=== PATIENT | female | born 1980 | race Caucasian/White ===

== ENCOUNTER 2025-04-01 14:19 | Observation (INO) ==
[2025-04-01] MEDS: SODIUM CHLORIDE 0.9% 1,000 ML IV STA (14:51)
--- NOTE | 2025-04-01 14:52 | Emergency Department Note ---
Impression & Plan UTI (urinary tract infection), Pelvic pain, Failure of outpatient treatment, Immunocompromised ED Provider Note NAME: JAYANT PEREZ AGE: 44 SEX: F : 1980 ARRIVES VIA: Walk-In INFORMANT: [Patient] ED PROVIDER(S): [Isra Granados MD] CHIEF COMPLAINT: Urinary symptoms HISTORY OF PRESENT ILLNESS: The patient is a 44-year-old female who presents with urinary symptoms that have been present for about a week. She has had some burning and urgency and some discomfort in the area of the pelvis. The patient saw her doctor's office and, had a urine culture run. She then came to the ED 5 days ago and was diagnosed with a UTI and placed on Keflex. She began to feel a bit better using the Keflex but was then called and told to switch to Macrobid based on her urine culture. She states that once she switched to Macrobid, she actually began to notice the symptoms worsening. She has not had fever or vomiting. No flank pain. As per the pharmacy notes, the patient grew Staph epidermidis which is somewhat resistant. The organism was resistant to oxacillin but sensitive to tetracycline, Bactrim, vancomycin, daptomycin, linezolid and Macrobid. Of note, the urine culture result from the [facility] from the primary doctor's office also grew staph resistant to oxacillin but sensitive to Macrobid, tetracycline, Bactrim and vancomycin. PMHx/PSHx/Social Hx: See Below PHYSICAL EXAM: GENERAL: Patient is in no acute distress. HEENT: No acute trauma, normocephalic atraumatic, mucous membranes moist, no nasal congestion. NECK: No stridor, no adenopathy, no meningismus, trachea is midline. LUNGS: Clear to auscultation bilaterally, no wheeze, no rhonchi, breath sounds equal. HEART: Without murmurs gallops or rubs, regular rate and rhythm. ABDOMEN: Soft, tender in the area of the low abdomen/pelvis. EXTREMITIES: No cyanosis, full range of motion of all the joints without pain or difficulty. Mild bilateral pedal edema. NEUROLOGIC: Oriented x 3, no acute motor or sensory deficits, no focal weakness. SKIN: No jaundice, no diaphoresis. Back: No flank discomfort to percussion. DIFFERENTIAL DIAGNOSIS: Pyelonephritis, resistant UTI, failed outpatient management, renal injury, among others. EMERGENCY DEPARTMENT PROCEDURES: MEDICAL DECISION MAKING: There is no leukocytosis or concerning anemia. There is a normal platelet count. No bandemia. No renal failure or significant electrolyte abnormality. No concerning liver enzyme elevation. No evidence for pancreatitis. testing is negative. Urinalysis is suggestive of infection. Abdominal and pelvis CT did not show any acute pathology, no urinary obstruction. On exam, the patient was not toxic or febrile. The patient has been dealing with some urinary discomfort and some lower pelvic pain. She has 2 urine cultures that have grown over 100,000 staph, the staph is resistant to oxacillin. She has multiple medication allergies and, right now, is not able to take any oral medication to combat this infection. Patient was given IV daptomycin, she received a liter of IV saline. Given the circumstances and findings, given her allergies and failed outpatient treatment, given her immunocompromise, admission for IV antibiotic therapy is warranted. I spoke with the patient at length, I spoke with case management, the on-call hospitalist was consulted. Prior/Outside records/notes reviewed: Previous ED visit note describing her presentation, findings and outpatient plan. Imaging/x-ray results per my interpretation: Chronic Medical/Social conditions affecting care: She is somewhat immunocompromise from using Humira. Care/Management discussed with: Case management and the on-call hospitalist. Level of care consideration(s): After review of the information above and other included data: --I believe the patient requires escalation of care to admission DISPOSITION: Admission Past Med/Surg History Problem List Immunocompromised (Acute) Failure of outpatient treatment (Acute) Pelvic pain (Acute) UTI (urinary tract infection) (Acute) UTI (urinary tract infection) (Acute) Abdominal pain (Acute) Acute diarrhea (Acute) Breast pain (Acute) Medical History Colitis Social History Smoking Status: Never smoker Preferred Language: Arabic Feels Safe at Home: Yes Allergies Allergies Allergy/AdvReac Type Severity Reaction Status Date / Time Sulfa (Sulfonamide Allergy Unknown "INFLAMED Unverified 10/08/14 03:43 Antibiotics) STOMACH" iodine Allergy Hives Unverified 04/01/25 17:29 Corticosteroids AdvReac Unknown "UPSET Unverified 10/08/14 03:43 (Glucocorticoids) STOMACH" amoxicillin [From Augmentin] AdvReac Abdominal Unverified 04/01/25 17:29 Pain clavulanic acid AdvReac Abdominal Unverified 04/01/25 17:29 [From Augmentin] Pain doxycycline AdvReac Abdominal Unverified 04/01/25 17:29 Pain metronidazole [From Flagyl] AdvReac Vomiting Unverified 04/01/25 17:29 sulfamethoxazole AdvReac Abdominal Unverified 04/01/25 17:29 [From Bactrim] Pain trimethoprim [From Bactrim] AdvReac Abdominal Unverified 04/01/25 17:29 Pain Home Meds Home Medications Medication Instructions Recorded Confirmed adalimumab 40 mg/0.4 mL 40 mg subcut DIRECTED 04/01/25 04/01/25 subcutaneous pen kit (Humira(CF) Pen) albuterol sulfate 90 mcg/actuation 2 puff inhalation Q6H PRN asthma 04/01/25 04/01/25 aerosol inhaler buspirone 15 mg tablet 15 mg PO HS 04/01/25 04/01/25 buspirone 5 mg tablet 5 mg PO DAILY 04/01/25 04/01/25 empagliflozin 25 mg tablet 25 mg PO DAILY 04/01/25 04/01/25 (Jardiance) fluticasone propionate 110 2 puff inhalation BID PRN asthma 04/01/25 04/01/25 mcg/actuation HFA aerosol inhaler levothyroxine 50 mcg tablet 50 mcg PO DAILY 04/01/25 04/01/25 metformin 500 mg tablet,extended 1,000 mg PO BID 04/01/25 04/01/25 release 24 hr methylphenidate HCl 27 mg 27 mg PO DAILY 04/01/25 04/01/25 tablet,extended release 24 hr nitrofurantoin 100 mg PO BID 04/01/25 04/01/25 monohydrate/macrocrystals 100 mg capsule omeprazole 20 mg capsule,delayed 20 mg PO DAILY 04/01/25 04/01/25 release semaglutide 0.25 mg or 0.5 mg (2 0.25 mg subcut WK 04/01/25 04/01/25 mg/3 mL) subcutaneous pen injector (Ozempic) vitamin D3 1,250 mcg (50,000 2 cap PO DAILY 04/01/25 04/01/25 unit)-vitamin K2 200 mcg capsule Results & Data (ED) Vital Signs Vital Signs - 24 hr 04/01/25 14:29 04/01/25 17:45 Temperature 36.3 C L Temperature Source Skin Pulse Rate 92 H Pulse Rate [Right Finger] 94 H Respiratory Rate 16 20 Respiratory Effort / Characteristics Non-Labored Spontaneous Respiratory Depth Normal Respiratory Pattern Regular Blood Pressure 176/108 H Blood Pressure [Left Arm] 142/100 H Blood Pressure Mean 130 Blood Pressure Mean [Left Arm] 114 Pulse Oximetry 100 99 Oxygen Delivery Method Room Air Sepsis Recent Fever Within 48 Hours No Sepsis New/Unexplained Change in Mental Status N/A Sepsis Action Taken by Nursing No Action Required Home Medications Current Medication List: was personally reviewed by me Laboratory Data Attestation: I reviewed the patient's lab results. 04/01/25 14:50 04/01/25 14:50 Lab Results 04/01/25 04/01/25 Range/Units 14:30 14:50 WBC 8.43 (4.8-10.8) K/ul RBC 4.72 (4.20-5.40) M/uL Hgb 13.0 (12.0-16.0) g/dL Hct 39.7 (37.0-47.0) % MCV 84.1 (80.0-100.0) fL MCH 27.5 (25.0-34.0) pg MCHC 32.7 (32.0-36.0) g/dL RDW Std Deviation 43.0 (36.4-46.3) fL RDW Coeff of Jean [place] 13.9 (11.5-14.5) % Plt Count 210 (130-400) K/uL MPV 10.8 (9.4-12.4) fL Immature Gran % (Auto) 0.2 % Neut % (Auto) 61.4 % Lymph % (Auto) 29.1 % [place] % (Auto) 7.2 % Eos % (Auto) 1.4 % Baso % (Auto) 0.7 % Neut # (Auto) 5.17 (1.40-6.50) K/uL Lymph # (Auto) 2.45 (1.20-3.40) K/uL [place] # (Auto) 0.61 H (0.11-0.59) K/uL Eos # (Auto) 0.12 (0.00-0.50) K/uL Baso # (Auto) 0.06 (0.00-0.20) K/uL Immature Gran # (Auto) 0.02 (0.01-0.20) K/uL Sodium 137 (136-145) mmol/L Potassium 3.4 L (3.5-5.1) mmol/L Chloride 102 (98-107) mmol/L Carbon Dioxide 26 (21-32) mmol/L Anion Gap 9 (3-11) BUN 11 (6-23) mg/dl Creatinine 0.65 (0.6-1.2) mg/dl Est Cr Clr Drug Dosing 147.3 ml/min eGFR 110.58 BUN/Creatinine Ratio 16.9 (10-20) Glucose 221 H (70-99(Fasting)) mg/dl Calcium 9.2 (8.6-10.3) mg/dl Total Bilirubin 0.4 (0.2-1.0) mg/dl AST 13 (13-39) U/L ALT 13 (7-52) U/L Alkaline Phosphatase 65 (34-104) U/L Total Protein 7.9 (6.0-8.3) gm/dl Albumin 4.4 (3.4-5.0) gm/dl Globulin 3.5 (2.5-4.0) gm/dl Albumin/Globulin Ratio 1.3 (0.9-2) Lipase 26 (11-82) U/L HCG, Qual Negative (Negative) Urine Color Yellow Urine Appearance Clear (Clear) Urine pH 5.5 (4.5-7.5) Ur Specific [place] 1.007 (1.000-1.030) Urine Protein Negative (Negative) Urine Glucose (UA) 1+ H (Negative) Urine Ketones Negative (Negative) Urine Blood Negative (Negative) Urine Nitrite Negative (Negative) Urine Bilirubin Negative (Negative) Urine Urobilinogen Negative (Negative) Ur Leukocyte Esterase 2+ H (Negative) Urine WBC (Auto) >50 H (0-5) /hpf Urine RBC (Auto) 0-2 (0-2) /hpf U Hyaline Cast (Auto) 0-2 (0-2) /lpf U Epithel Cells (Auto) 0-2 (0-2) /hpf Urine Bacteria (Auto) None Seen (None Seen) Urine Yeast Present A (None Prsent) Urine Comment Administered Medications Discontinued Medications Sodium Chloride (Nss) 1,000 mls @ 999 mls/hr IV .Q1H1M STA Stop: 04/01/25 15:36 Last Admin: 04/01/25 14:51 Dose: 999 mls/hr Documented By: NANETTE Ioversol (Optiray 320 100ml) 93 ml IV ONCE ONE Stop: 04/01/25 15:45 Last Admin: 04/01/25 15:44 Dose: 93 ml Documented By: EDK Imaging Data Radiologist's Impression: Abdomen/Pelvis CT 04/01/25 14:36 EXAMINATION: CT of the abdomen and pelvis performed after the administration of IV contrast TECHNIQUE: Helical CT images from the lung bases through the symphysis pubis were obtained with contrast. Coronal and sagittal reformatted images were generated at a workstation for further assessment. Dose reduction techniques were achieved by using automatic exposure control and/or adjustment of mA and/or kV according to patient size and/or use of iterative reconstruction technique. COMPARISON: None HISTORY: Abdominal pain FINDINGS: Lower chest: No consolidation. No pleural effusion or pneumothorax. Liver: No suspicious liver lesions. Portal veins appear patent. Gallbladder: No gallstones. No evidence of acute cholecystitis. Spleen: Normal size. Pancreas: No suspicious pancreatic lesions. The pancreatic duct is not dilated. Adrenal glands: No adrenal nodules. Kidneys: No hydronephrosis or obstructing renal stones. There is scattered pelvic phleboliths. Bladder / Pelvic organs: Unremarkable. Bowel: No bowel obstruction. No abnormal bowel wall thickening. The appendix is unremarkable. Lymph nodes: No retroperitoneal, mesenteric, or pelvic lymphadenopathy. Peritoneum / Retroperitoneum: No free fluid or air within the abdomen. Vessels: No infrarenal aortic aneurysm. Bones and soft tissues: No suspicious lesion in the bones. IMPRESSION: No acute finding in the abdomen or pelvis Electronically signed by Ebenezer Florentino 04-01-2025 5:27 PM Discharge Plan Visit Data Chief Complaint: Urinary Symptoms Stated Complaint: URINARY SYMPTOMS ED Provider: Isra Granados Discharge Problem: UTI (urinary tract infection), Pelvic pain, Failure of outpatient treatment, Immunocompromised Patient Disposition: Admitted As Inpatient Condition: Fair Forms Stand Alone Forms: My [facility] Prescriptions Prescriptions: No Action levothyroxine 50 mcg tablet 50 mcg PO DAILY omeprazole 20 mg capsule,delayed release(DR/EC) 20 mg PO DAILY albuterol sulfate 90 mcg/actuation HFA aerosol inhaler 2 puff INHALATION Q6H PRN (Reason: asthma) metformin 500 mg tablet extended release 24 hr 1,000 mg PO BID fluticasone propionate [Flovent] 110 mcg/actuation Hfa Aerosol Inhaler 2 puff INHALATION BID PRN (Reason: asthma) buspirone 15 mg tablet 15 mg PO HS Rx Instructions: 15 mg at bedtime and 5 mg in am methylphenidate HCl 27 mg tablet extended release 24hr 27 mg PO DAILY nitrofurantoin monohyd/m-cryst 100 mg capsule 100 mg PO BID Jardiance 25 mg tablet 25 mg PO DAILY Patient Comments: Medication on hold per pt. Humira(CF) Pen 40 mg/0.4 mL pen injector kit 40 mg SUBCUT DIRECTED Rx Instructions: Inject every 2 weeks vitamin D3-vitamin K2 1,250-200 mcg Capsule 2 cap PO DAILY Ozempic 0.25 mg or 0.5 mg (2 mg/3 mL) pen injector 0.25 mg SUBCUT WK buspirone 5 mg Tablet 5 mg PO DAILY Referrals Referrals: Roque Steven MD [Primary Care Provider] - Discharge Problem: UTI (urinary tract infection) Qualifiers: Urinary tract infection type: acute cystitis Hematuria presence: without hematuria Qualified Code(s): N30.00 - Acute cystitis without hematuria Pelvic pain Qualifiers: Laterality: unspecified laterality Qualified Code(s): R10.20 - Pelvic and perineal pain unspecified side
[2025-04-01 15:07] LABS: Hematocrit (blood only) 39.7 % (37.0-47.0); Hemoglobin 13.0 g/dL (12.0-16.0); Immature Granulocytes # (auto) 0.02 K/uL (0.01-0.20); Immature Granulocytes % (auto) 0.2 %; Mean Corpuscular Hemoglobin 27.5 pg (25.0-34.0); Mean Corpuscular Volume 84.1 fL (80.0-100.0); Platelet Count 210 K/uL (130-400); RDW Standard Deviation 43.0 fL (36.4-46.3); Red Blood Count 4.72 M/uL (4.20-5.40); White Blood Count 8.43 K/ul (4.8-10.8)
[2025-04-01 15:26] LABS: Alanine Aminotransferase 13.0 U/L (7-52); Albumin Globulin Ratio 1.3 (0.9-2); Albumin Level 4.4 gm/dl (3.4-5.0); Alkaline Phosphatase 65.0 U/L (34-104); Anion Gap 9.0 (3-11); Bilirubin,Total 0.4 mg/dl (0.2-1.0); Blood Urea Nitrogen 11.0 mg/dl (6-23); Calcium 9.2 mg/dl (8.6-10.3); Carbon Dioxide 26.0 mmol/L (21-32); Chloride 102.0 mmol/L (98-107); Creatinine Clr Calc Pharmacy 147.3 ml/min; Globulin 3.5 gm/dl (2.5-4.0); Glucose 221.0 mg/dl (70-99(Fasting)); Lipase 26.0 U/L (11-82); Potassium 3.4 mmol/L (3.5-5.1); Sodium 137.0 mmol/L (136-145); Total Protein 7.9 gm/dl (6.0-8.3)
[2025-04-01 15:27] LABS: Appearance Urine Clear (Clear); Bacteria Urine Automated None Seen (None Seen); Cast Urine Automated 0-2 /lpf (0-2); Epithelial Cell Urine Auto 0-2 /hpf (0-2); Glucose Urine UA 1+ (Negative); RBC Urine Automated 0-2 /hpf (0-2); WBC Urine Automated >50 /hpf (0-5)
[2025-04-01 15:30] LABS: Pregnancy Test, Serum Negative (Negative)
[2025-04-01] MEDS: OPTIRAY 320 100ml IV ONE (15:44)
--- NOTE | 2025-04-01 17:28 | CT Scan Report ---
EXAMINATION: CT of the abdomen and pelvis performed after the administration of IV contrast TECHNIQUE: Helical CT images from the lung bases through the symphysis pubis were obtained with contrast. Coronal and sagittal reformatted images were generated at a workstation for further assessment. Dose reduction techniques were achieved by using automatic exposure control and/or adjustment of mA and/or kV according to patient size and/or use of iterative reconstruction technique. COMPARISON: None HISTORY: Abdominal pain FINDINGS: Lower chest: No consolidation. No pleural effusion or pneumothorax. Liver: No suspicious liver lesions. Portal veins appear patent. Gallbladder: No gallstones. No evidence of acute cholecystitis. Spleen: Normal size. Pancreas: No suspicious pancreatic lesions. The pancreatic duct is not dilated. Adrenal glands: No adrenal nodules. Kidneys: No hydronephrosis or obstructing renal stones. There is scattered pelvic phleboliths. Bladder / Pelvic organs: Unremarkable. Bowel: No bowel obstruction. No abnormal bowel wall thickening. The appendix is unremarkable. Lymph nodes: No retroperitoneal, mesenteric, or pelvic lymphadenopathy. Peritoneum / Retroperitoneum: No free fluid or air within the abdomen. Vessels: No infrarenal aortic aneurysm. Bones and soft tissues: No suspicious lesion in the bones. IMPRESSION: No acute finding in the abdomen or pelvis Electronically signed by Ebenezer Florentino 04-01-2025 5:27 PM
--- NOTE | 2025-04-01 17:43 | History & Physical Report ---
Date of Service April 01, 2025 Assessment & Plan (1) UTI (urinary tract infection): (2) Immunocompromised: (3) Failure of outpatient treatment: Plan: Urinary tract infection Failed outpatient treatment (Keflex, Macrobid) Immunocompromise state --CT ABD:No acute finding in the abdomen or pelvis -- Prior urine culture grew Staph epidermidis resistant to oxacillin Given intolerance to multiple oral antibiotics due to Crohn's disease, will start on IV daptomycin Gentle IV fluids Blood, urine culture pending Pyridium as needed Hypokalemia Replete and monitor Elevated blood pressure No known history of hypertension Likely situational Monitor for now Crohn's disease Last colonoscopy in October In remission Hold Humira Follows with gastroenterology as outpatient GERD Continue PPI Diabetes mellitus type 2 Hold p.o. meds Consider to discontinue Jardiance on discharge Insulin sliding scale while hospitalized Monitor blood glucose levels Other chronic condition Asthma ADHD Mood disorder Continue home medications DVT Px: Lovenox SQ CODE STATUS Full code Disposition Admit to [facility] I personally interviewed and examined the patient at bedside. Personally reviewed blood work, imaging studies, old records and discussed with the ED physician. I spent a total [id number] coordinating, documenting, and providing care for this patient. History of Present Illness Chief Complaint: Urinary symptoms Primary Care Provider: Roque Steven MD Patient is a 44-year-old female with history of Crohn's disease on Humira, GERD, diabetes mellitus type 2, asthma, ADHD, mood disorder and other medical problems presents with history of worsening dysuria, increased urinary urgency/frequency, lower abdominal pain for about 1 week duration. Patient noted to have cloudy urine with metallic taste in her mouth initially and later developed lower a bdominal pressure associated with dysuria and increased urinary frequency. Patient was evaluated in ED and was suspected to have UTI and was prescribed Keflex. She developed transient diarrhea while on Keflex. Patient denied any blood in stools. Her symptoms temporarily improved and based on her urine cultures patient was called to discontinue Keflex and was started on Macrobid. After starting Macrobid, patient's symptoms continue to worsen and had recurrence of dysuria, increased urinary frequency and urgency associated with worsening lower abdominal pain and so presented to ED for further evaluation. Denies any history of chest pain, dyspnea, dizziness, pedal edema, fever, chills, nausea, vomiting, blood in stools, hematuria. Allergies Allergy/AdvReac Type Severity Reaction Status Date / Time Sulfa (Sulfonamide Allergy Unknown "INFLAMED Unverified 10/08/14 03:43 Antibiotics) STOMACH" iodine Allergy Hives Unverified 04/01/25 17:29 Corticosteroids AdvReac Unknown "UPSET Unverified 10/08/14 03:43 (Glucocorticoids) STOMACH" amoxicillin [From Augmentin] AdvReac Abdominal Unverified 04/01/25 17:29 Pain clavulanic acid AdvReac Abdominal Unverified 04/01/25 17:29 [From Augmentin] Pain doxycycline AdvReac Abdominal Unverified 04/01/25 17:29 Pain metronidazole [From Flagyl] AdvReac Vomiting Unverified 04/01/25 17:29 sulfamethoxazole AdvReac Abdominal Unverified 04/01/25 17:29 [From Bactrim] Pain trimethoprim [From Bactrim] AdvReac Abdominal Unverified 04/01/25 17:29 Pain Home Medications Medication Instructions Recorded Confirmed Type adalimumab 40 mg/0.4 mL 40 mg subcut DIRECTED 04/01/25 04/01/25 History subcutaneous pen kit (Humira(CF) Pen) albuterol sulfate 90 mcg/actuation 2 puff inhalation Q6H PRN asthma 04/01/25 04/01/25 History aerosol inhaler buspirone 15 mg tablet 15 mg PO HS 04/01/25 04/01/25 History buspirone 5 mg tablet 5 mg PO DAILY 04/01/25 04/01/25 History empagliflozin 25 mg tablet 25 mg PO DAILY 04/01/25 04/01/25 History (Jardiance) fluticasone propionate 110 2 puff inhalation BID PRN asthma 04/01/25 04/01/25 History mcg/actuation HFA aerosol inhaler levothyroxine 50 mcg tablet 50 mcg PO DAILY 04/01/25 04/01/25 History metformin 500 mg tablet,extended 1,000 mg PO BID 04/01/25 04/01/25 History release 24 hr methylphenidate HCl 27 mg 27 mg PO DAILY 04/01/25 04/01/25 History tablet,extended release 24 hr nitrofurantoin 100 mg PO BID 04/01/25 04/01/25 History monohydrate/macrocrystals 100 mg capsule omeprazole 20 mg capsule,delayed 20 mg PO DAILY 04/01/25 04/01/25 History release semaglutide 0.25 mg or 0.5 mg (2 0.25 mg subcut WK 04/01/25 04/01/25 History mg/3 mL) subcutaneous pen injector (Ozempic) vitamin D3 1,250 mcg (50,000 2 cap PO DAILY 04/01/25 04/01/25 History unit)-vitamin K2 200 mcg capsule Past Med/Surg History Problem List Immunocompromised (Acute) Failure of outpatient treatment (Acute) Pelvic pain (Acute) UTI (urinary tract infection) (Acute) UTI (urinary tract infection) (Acute) Abdominal pain (Acute) Acute diarrhea (Acute) Breast pain (Acute) Medical History Colitis Social History Smoking Status: Never smoker Preferred Language: Irish Feels Safe at Home: Yes Review of Systems Review of Systems: All systems reviewed & are unremarkable except as noted in Subjective Physical Exam Physical Exam: Physical Exam: Vitals signs as noted above General Appearance: Obese, no apparent distress Head: normocephalic, Atraumatic Eyes: normal inspection, EOMI Neck: supple, Trachea midline Respiratory/Chest: Normal breath sounds, CTA, No accessory muscle use Cardiovascular: S1, S2, No murmur Abdomen/GI:Soft, generalized abdominal tenderness predominantly lower quadrant, Bowel sounds present, no guarding or rigidity Extremities/Musculoskeletal:normal inspection, no edema Neurologic/Psych:AAOX3, grossly no focal neurological deficits Skin: normal color, warm Results & Data Results & Data Vital Signs (Past 12 Hours) Vital Signs Temp Pulse Resp BP Pulse Ox O2 Del Method 04/01/25 14:29 36.3 C L 92 H 16 176/108 H 100 Room Air Laboratory Results Short CBC 04/01/25 Range/Units 14:50 WBC 8.43 (4.8-10.8) K/ul Hgb 13.0 (12.0-16.0) g/dL Hct 39.7 (37.0-47.0) % Plt Count 210 (130-400) K/uL BMP 04/01/25 14:50 Sodium 137 Potassium 3.4 L Chloride 102 Carbon Dioxide 26 BUN 11 Creatinine 0.65 Glucose 221 H Calcium 9.2 Liver Function 04/01/25 Range/Units 14:50 Total Bilirubin 0.4 (0.2-1.0) mg/dl AST 13 (13-39) U/L ALT 13 (7-52) U/L Alkaline Phosphatase 65 (34-104) U/L Albumin 4.4 (3.4-5.0) gm/dl Urine 04/01/25 Range/Units 14:30 Urine Color Yellow Urine Appearance Clear (Clear) Urine pH 5.5 (4.5-7.5) Ur Specific [place] 1.007 (1.000-1.030) Urine Protein Negative (Negative) Urine Glucose (UA) 1+ H (Negative) Diagnostic Findings --CT ABD:No acute finding in the abdomen or pelvis (1) UTI (urinary tract infection) Hematuria presence: without hematuria Urinary tract infection type: acute cystitis Qualified Code(s): N30.00 - Acute cystitis without hematuria
[2025-04-01] MEDS: DAPTOmycin 775 MG in SYRINGE 0 ML IV ONE (18:39)
[2025-04-01] MEDS ORDERED: ONDANSETRON INJ 2 MG/ML 2 ML VIAL IV PRN (20:40)
[2025-04-01] MEDS ORDERED: PHENAZOPYRIDINE HCL 100 MG TAB PO PRN (20:40)
[2025-04-01] MEDS ORDERED: POLYETHYLENE (MIRALAX) 17 GM PACK PO PRN (20:40)
[2025-04-01] MEDS ORDERED: CARBOHYDRATES FOR HYPOGLYCEMIA PO PRN (20:40)
[2025-04-01] MEDS ORDERED: GLUCAGON FOR INJ 1 MG VIAL SQ PRN (20:40)
[2025-04-01] MEDS ORDERED: ALBUTEROL HFA 8 GM INHALER INH PRN (20:40)
[2025-04-01] MEDS ORDERED: GLUCOSE 10 TAB/TUBE PO PRN (20:40)
[2025-04-01] MEDS ORDERED: GLUCOSE 40% GEL 15 GM TUBE PO PRN (20:40)
[2025-04-01] MEDS ORDERED: DEXTROSE 50% 50 ML SYRINGE IV PRN (20:40)
[2025-04-01] MEDS: LANTUS PER UNIT CHARGE SQ SCH (21:41)
[2025-04-01] MEDS: INSULIN ASPART PER UNIT CHARGE SC SCH (21:41)
[2025-04-01] MEDS: POTASSIUM CHLORIDE 10 MEQ TABCR PO ONE (21:42)
[2025-04-01] MEDS: busPIRone 15 MG TAB PO SCH (21:42)
[2025-04-01] MEDS: LACTATED RINGER'S 1,000 ML IV ONE (21:42)
[2025-04-01] MEDS: ACETAMINOPHEN 325 MG TAB PO PRN (21:50)
[2025-04-02] MEDS: LEVOTHYROXINE SODIUM 50 MCG TABLET PO SCH (05:43)
[2025-04-02 06:28] LABS: Hematocrit (blood only) 35.5 % (37.0-47.0); Hemoglobin 12.0 g/dL (12.0-16.0); Mean Corpuscular Hemoglobin 28.2 pg (25.0-34.0); Mean Corpuscular Volume 83.3 fL (80.0-100.0); Platelet Count 179 K/uL (130-400); RDW Standard Deviation 42.2 fL (36.4-46.3); Red Blood Count 4.26 M/uL (4.20-5.40); White Blood Count 7.70 K/ul (4.8-10.8)
[2025-04-02 06:41] LABS: Anion Gap 6.0 (3-11); Blood Urea Nitrogen 10.0 mg/dl (6-23); Calcium 8.7 mg/dl (8.6-10.3); Carbon Dioxide 25.0 mmol/L (21-32); Chloride 107.0 mmol/L (98-107); Creatinine Clr Calc Pharmacy 175.4 ml/min; Glucose 160.0 mg/dl (70-99(Fasting)); Magnesium 1.6 mg/dl (1.7-2.4); Potassium 3.9 mmol/L (3.5-5.1); Sodium 138.0 mmol/L (136-145)
[2025-04-02] MEDS: INSULIN ASPART PER UNIT CHARGE SC SCH (07:56)
[2025-04-02] MEDS: busPIRone 5 MG TAB PO SCH (09:27)
[2025-04-02] MEDS: ENOXAPARIN INJ 40 MG/0.4 ML SYR SQ SCH (09:27)
[2025-04-02 15:18] VITALS: RESP 18
--- NOTE | 2025-04-02 16:03 | Hospitalist Progress Note ---
Date of Service April 02, 2025 Assessment & Plan (1) UTI (urinary tract infection): (2) Immunocompromised: (3) Failure of outpatient treatment: Plan: Urinary tract infection Failed outpatient treatment (Keflex, Macrobid) Immunocompromise state --CT ABD:No acute finding in the abdomen or pelvis -- Prior urine culture grew Staph epidermidis resistant to oxacillin Given intolerance to multiple oral antibiotics due to Crohn's disease, will start on IV daptomycin Gentle IV fluids Blood, urine culture pending Pyridium as needed 04/02 Clinically improving Blood culture: Pending Continue daptomycin day #2 Will need total of 7-day course of IV daptomycin in light of immunocompromise state, on Humira, failure of oral antibiotics Plan to receive IV daptomycin daily at the medical treatment unit, discussed with patient and she is agreeable with this plan, discussed with business case analyst who will be making arrangements Hypokalemia Replete and monitor Elevated blood pressure No known history of hypertension Likely situational Monitor for now 04/02 monitor Crohn's disease Last colonoscopy in October In remission Hold Humira Follows with gastroenterology as outpatient GERD Continue PPI Diabetes mellitus type 2 Hold p.o. meds Consider to discontinue Jardiance on discharge Insulin sliding scale while hospitalized Monitor blood glucose levels Other chronic condition Asthma ADHD Mood disorder Continue home medications DVT Px: Lovenox SQ CODE STATUS Full code Disposition anticipate discharge to home tomorrow IV daptomycin by [facility] upon discharge Admission and Anticipated Discharge Date Admission Date: April 01, 2025 Subjective seen resting in bed, comfortable, in good spirits Patient's Leonardo at the bedside visiting States she feels improved compared to yesterday Less lower abdominal pain, and dysuria, no hematuria No fevers or chills No flank or back pain No chest pain, shortness of breath, headache No other new symptoms Review of Systems Review of Systems: all noted and negative except for above Physical Exam Physical Exam: General- oriented x 3, not in distress, speaks in sentences with no effort or accessory muscle use Eyes- anicteric Neck- no JVD Lungs- clear breath sounds bilaterally, no rales/wheezes Heart- normal rate, regular rhythm; no murmurs Abdomen- normal bowel sounds, nondistended, soft, Minimal tenderness lower quadrants no CVA tenderness Extremities- no pretibial edema, no calf tenderness Neuro- alert, oriented x 3; no gross focal neurologic deficits Skin- warm & dry Results & Data Results & Data Vital Signs (Past 12 Hours) Vital Signs Temp Pulse Resp BP BP Pulse Ox O2 Del Method 04/02/25 14:57 37.1 C 83 18 148/89 H 96 Room Air 04/02/25 07:56 37.1 C 83 16 159/94 H 98 Room Air 04/02/25 07:20 Room Air all noted and reviewed including below (1) UTI (urinary tract infection) Hematuria presence: without hematuria Urinary tract infection type: acute cystitis Qualified Code(s): N30.00 - Acute cystitis without hematuria
[2025-04-02] MEDS: DAPTOmycin 500 MG in SYRINGE 0 ML IV SCH (19:36)
--- NOTE | 2025-04-03 13:33 | Discharge Summary ---
Discharge Summary Date of Service April 03, 2025 Principal Dx & Hospital Course #1 = Principal Diagnosis (1) UTI (urinary tract infection): (2) Immunocompromised: (3) Failure of outpatient treatment: Urinary tract infection Failed outpatient treatment (Keflex, Macrobid) Immunocompromise state --CT ABD:No acute finding in the abdomen or pelvis -- Prior urine culture grew Staph epidermidis resistant to oxacillin Given intolerance to multiple oral antibiotics due to Crohn's disease, will start on IV daptomycin Gentle IV fluids Blood, urine culture pending Pyridium as needed 04/03 Clinically improving Blood culture: negative x 24 hrs, final results pending given daptomycin day #3/7 Will need total of 7-day course of IV daptomycin in light of immunocompromise state, on Humira, failure of oral antibiotics Plan to receive IV daptomycin daily at the medical treatment unit, discussed with patient and she is agreeable with this plan, discussed with community case manager who will be making arrangements Hypokalemia resolved Elevated blood pressure No known history of hypertension Likely situational resolved monitor Crohn's disease Last colonoscopy in October In remission Hold Humira until ff up with PCP Follows with gastroenterology as outpatient GERD Continue PPI Diabetes mellitus type 2 continue Metformin ff up with PCP Other chronic condition Asthma ADHD Mood disorder Continue home medications DVT Px: Lovenox SQ CODE STATUS Full code Disposition d/c home ff up with [facility] for Daptomycin daily x 4 more doses plan of care discussed with patient in detail all questions answered she is understanding, agreeable, comfortable with the plan of care Notes For Next Care Provider Medication Changes From Visit as per med rec Admission HPI Per Admitting Provider Patient is a 44-year-old female with history of Crohn's disease on Humira, GERD, diabetes mellitus type 2, asthma, ADHD, mood disorder and other medical problems presents with history of worsening dysuria, increased urinary urgency/frequency, lower abdominal pain for about 1 week duration. Patient noted to have cloudy urine with metallic taste in her mouth initially and later developed lower abdominal pressure associated with dysuria and increased urinary frequency. Patient was evaluated in ED and was suspected to have UTI and was prescribed Keflex. She developed transient diarrhea while on Keflex. Patient denied any blood in stools. Her symptoms temporarily improved and based on her urine cultures patient was called to discontinue Keflex and was started on Macrobid. After starting Macrobid, patient's symptoms continue to worsen and had recurrence of dysuria, increased urinary frequency and urgency associated with worsening lower abdominal pain and so presented to ED for further evaluation. Denies any history of chest pain, dyspnea, dizziness, pedal edema, fever, chills, nausea, vomiting, blood in stools, hematuria. Admission Exam Per Admitting Provider Physical Exam: Vitals signs as noted above General Appearance: Obese, no apparent distress Head: normocephalic, Atraumatic Eyes: normal inspection, EOMI Neck: supple, Trachea midline Respiratory/Chest: Normal breath sounds, CTA, No accessory muscle use Cardiovascular: S1, S2, No murmur Abdomen/GI:Soft, generalized abdominal tenderness predominantly lower quadrant, Bowel sounds present, no guarding or rigidity Extremities/Musculoskeletal:normal inspection, no edema Neurologic/Psych:AAOX3, grossly no focal neurological deficits Skin: normal color, warm Discharge Exam General- oriented x 3, not in distress, speaks in sentences with no effort or accessory muscle use Eyes- anicteric Neck- no JVD Lungs- clear breath sounds bilaterally, no rales/wheezes Heart- normal rate, regular rhythm; no murmurs Abdomen- normal bowel sounds, nondistended, soft, minimal suprapubic tenderness Extremities- no pretibial edema, no calf tenderness Neuro- alert, oriented x 3; no gross focal neurologic deficits Skin- warm & dry *RN at bedside during physical exam Updated Medication List Medication Instructions Recorded Confirmed Type adalimumab 40 mg/0.4 mL 40 mg subcut DIRECTED 04/01/25 04/01/25 History subcutaneous pen kit (Humira(CF) Pen) albuterol sulfate 90 mcg/actuation 2 puff inhalation Q6H PRN asthma 04/01/25 04/01/25 History aerosol inhaler buspirone 15 mg tablet 15 mg PO HS 04/01/25 04/01/25 History buspirone 5 mg tablet 5 mg PO DAILY 04/01/25 04/01/25 History empagliflozin 25 mg tablet 25 mg PO DAILY 04/01/25 04/01/25 History (Jardiance) fluticasone propionate 110 2 puff inhalation BID PRN asthma 04/01/25 04/01/25 History mcg/actuation HFA aerosol inhaler levothyroxine 50 mcg tablet 50 mcg PO DAILY 04/01/25 04/01/25 History metformin 500 mg tablet,extended 1,000 mg PO BID 04/01/25 04/01/25 History release 24 hr methylphenidate HCl 27 mg 27 mg PO DAILY 04/01/25 04/01/25 History tablet,extended release 24 hr omeprazole 20 mg capsule,delayed 20 mg PO DAILY 04/01/25 04/01/25 History release semaglutide 0.25 mg or 0.5 mg (2 0.25 mg subcut WK 04/01/25 04/01/25 History mg/3 mL) subcutaneous pen injector (Ozempic) vitamin D3 1,250 mcg (50,000 2 cap PO DAILY 04/01/25 04/01/25 History unit)-vitamin K2 200 mcg capsule daptomycin 500 mg intravenous 500 mg IV DAILY 4 days 04/03/25 Rx solution phenazopyridine 100 mg tablet 100 mg PO TID PRN bladder spasms 04/03/25 Rx (Pyridium) #20 tabs Hospital Stay Data Consultations 04/01/25 17:39 ED Decision to Admit Stat Diagnostic Imagining Performed Laboratory Results WBC 7.70 K/ul (4.8-10.8) 04/02/25 06:12 RBC 4.26 M/uL (4.20-5.40) 04/02/25 06:12 Hgb 12.0 g/dL (12.0-16.0) 04/02/25 06:12 Hct 35.5 % (37.0-47.0) L 04/02/25 06:12 MCV 83.3 fL (80.0-100.0) 04/02/25 06:12 MCH 28.2 pg (25.0-34.0) 04/02/25 06:12 MCHC 33.8 g/dL (32.0-36.0) 04/02/25 06:12 RDW Std Deviation 42.2 fL (36.4-46.3) 04/02/25 06:12 RDW Coeff of [place] 13.8 % (11.5-14.5) 04/02/25 06:12 Plt Count 179 K/uL (130-400) 04/02/25 06:12 MPV 10.8 fL (9.4-12.4) 04/02/25 06:12 Immature Gran % (Auto) 0.2 % 04/01/25 14:50 Neut % (Auto) 61.4 % 04/01/25 14:50 Lymph % (Auto) 29.1 % 04/01/25 14:50 [place] % (Auto) 7.2 % 04/01/25 14:50 Eos % (Auto) 1.4 % 04/01/25 14:50 Baso % (Auto) 0.7 % 04/01/25 14:50 Neut # (Auto) 5.17 K/uL (1.40-6.50) 04/01/25 14:50 Lymph # (Auto) 2.45 K/uL (1.20-3.40) 04/01/25 14:50 [place] # (Auto) 0.61 K/uL (0.11-0.59) H 04/01/25 14:50 Eos # (Auto) 0.12 K/uL (0.00-0.50) 04/01/25 14:50 Baso # (Auto) 0.06 K/uL (0.00-0.20) 04/01/25 14:50 Immature Gran # (Auto) 0.02 K/uL (0.01-0.20) 04/01/25 14:50 Sodium 138 mmol/L (136-145) 04/02/25 06:12 Potassium 3.9 mmol/L (3.5-5.1) 04/02/25 06:12 Chloride 107 mmol/L (98-107) 04/02/25 06:12 Carbon Dioxide 25 mmol/L (21-32) 04/02/25 06:12 Anion Gap 6 (3-11) 04/02/25 06:12 BUN 10 mg/dl (6-23) 04/02/25 06:12 Creatinine 0.54 mg/dl (0.6-1.2) L 04/02/25 06:12 Est Cr Clr Drug Dosing 175.4 ml/min 04/02/25 06:12 eGFR 115.63 04/02/25 06:12 BUN/Creatinine Ratio 18.5 (10-20) 04/02/25 06:12 Glucose 160 mg/dl (70-99(Fasting)) H 04/02/25 06:12 POC Glucose 160 mg/dl (70-99) H 04/03/25 11:33 Calcium 8.7 mg/dl (8.6-10.3) 04/02/25 06:12 Magnesium 1.6 mg/dl (1.7-2.4) L 04/02/25 06:12 Total Bilirubin 0.4 mg/dl (0.2-1.0) 04/01/25 14:50 AST 13 U/L (13-39) 04/01/25 14:50 ALT 13 U/L (7-52) 04/01/25 14:50 Alkaline Phosphatase 65 U/L (34-104) 04/01/25 14:50 Total Protein 7.9 gm/dl (6.0-8.3) 04/01/25 14:50 Albumin 4.4 gm/dl (3.4-5.0) 04/01/25 14:50 Globulin 3.5 gm/dl (2.5-4.0) 04/01/25 14:50 Albumin/Globulin Ratio 1.3 (0.9-2) 04/01/25 14:50 Lipase 26 U/L (11-82) 04/01/25 14:50 HCG, Qual Negative (Negative) 04/01/25 14:50 Urine Color Yellow 04/01/25 14:30 Urine Appearance Clear (Clear) 04/01/25 14:30 Urine pH 5.5 (4.5-7.5) 04/01/25 14:30 Ur Specific [place] 1.007 (1.000-1.030) 04/01/25 14:30 Urine Protein Negative (Negative) 04/01/25 14:30 Urine Glucose (UA) 1+ (Negative) H 04/01/25 14:30 Urine Ketones Negative (Negative) 04/01/25 14:30 Urine Blood Negative (Negative) 04/01/25 14:30 Urine Nitrite Negative (Negative) 04/01/25 14:30 Urine Bilirubin Negative (Negative) 04/01/25 14:30 Urine Urobilinogen Negative (Negative) 04/01/25 14:30 Ur Leukocyte Esterase 2+ (Negative) H 04/01/25 14:30 Urine WBC (Auto) >50 /hpf (0-5) H 04/01/25 14:30 Urine RBC (Auto) 0-2 /hpf (0-2) 04/01/25 14:30 U Hyaline Cast (Auto) 0-2 /lpf (0-2) 04/01/25 14:30 U Epithel Cells (Auto) 0-2 /hpf (0-2) 04/01/25 14:30 Urine Bacteria (Auto) None Seen (None Seen) 04/01/25 14:30 Urine Yeast Present (None Prsent) A 04/01/25 14:30 Urine Comment 04/01/25 14:30 Impressions Abdomen/Pelvis CT 04/01/25 14:36 EXAMINATION: CT of the abdomen and pelvis performed after the administration of IV contrast TECHNIQUE: Helical CT images from the lung bases through the symphysis pubis were obtained with contrast. Coronal and sagittal reformatted images were generated at a workstation for further assessment. Dose reduction techniques were achieved by using automatic exposure control and/or adjustment of mA and/or kV according to patient size and/or use of iterative reconstruction technique. COMPARISON: None HISTORY: Abdominal pain FINDINGS: Lower chest: No consolidation. No pleural effusion or pneumothorax. Liver: No suspicious liver lesions. Portal veins appear patent. Gallbladder: No gallstones. No evidence of acute cholecystitis. Spleen: Normal size. Pancreas: No suspicious pancreatic lesions. The pancreatic duct is not dilated. Adrenal glands: No adrenal nodules. Kidneys: No hydronephrosis or obstructing renal stones. There is scattered pelvic phleboliths. Bladder / Pelvic organs: Unremarkable. Bowel: No bowel obstruction. No abnormal bowel wall thickening. The appendix is unremarkable. Lymph nodes: No retroperitoneal, mesenteric, or pelvic lymphadenopathy. Peritoneum / Retroperitoneum: No free fluid or air within the abdomen. Vessels: No infrarenal aortic aneurysm. Bones and soft tissues: No suspicious lesion in the bones. IMPRESSION: No acute finding in the abdomen or pelvis Electronically signed by Ebenezer Florentino 04-01-2025 5:27 PM Pending Results Patient Have Any Pending Studies at Discharge: No Discharge Instructions Given to Patient (Per Discharging Provider) PLEASE REFER TO YOUR NEW MEDICATION LIST AND FOLLOW INSTRUCTIONS CAREFULLY. YOUR NEW MEDICATIONS INCLUDE: Daptomycin- IV antiobiotic for UTI Pyridium- as needed for bladder pain/spasms Hold Metformin to avoid kidney injury from CT scan IV contrast. You can resume Metformin tomorrow 04/04/25. Hold Humira until follow up with PCP next week. PLEASE CALL YOUR PRIMARY CARE PHYSICIAN OR RETURN TO THE ER IF WITH WORSENING OF SYMPTOMS, INCLUDING fever/chills, abdominal/flank/back pain, blood in the urine, etc FOLLOW UP WITH PRIMARY CARE PHYSICIAN OUTLINED ABOVE. REPEAT BLOOD WORK (COMPLETE BLOOD COUNT, COMPLETE METABOLIC PANEL) AND URINE CULTURE UPON FOLLOW UP WITH PCP NEXT WEEK. Total Time Total Time Spent Total Time Spent (In Minutes): 40 minutes
[2025-04-03] MEDS: PHENAZOPYRIDINE HCL 100 MG TAB PO STA (13:52)
[2025-04-03] MEDS: DAPTOmycin 500 MG in SYRINGE 0 ML IV SCH (15:00)
[2025-04-03 15:16] VITALS: BP 128/80; PULSE 91; TEMP 98.4; O2SAT 99
== END 2025-04-03 16:10 | disposition home or self-care (01) | DRG 690 ==
LOC: ED 14:19 → INTOOBSV 18:38 → SUATTDRO 18:38 → 3N 18:38